=== PATIENT | female | born 1990 | race Caucasian/White ===

== ENCOUNTER 2016-11-07 08:00 | Inpatient (IN) ==
[2016-11-07] MEDS ORDERED: Ondansetron 4 MG/2 ML VIAL IVP PRN (08:13)
[2016-11-07] MEDS ORDERED: Famotidine 20 MG/2 ML VIAL IVP PRN (08:13)
[2016-11-07] MEDS ORDERED: Metoclopramide 10 MG/2 ML VIAL IVP PRN (08:13)
[2016-11-07] MEDS ORDERED: miSOPROStol 25 MCG TABLET PO PRN (08:13)
[2016-11-07] MEDS ORDERED: *HR* Nalbuphine 20 MG/ML AMPUL IVP PRN (08:17)
[2016-11-07] MEDS ORDERED: Penicillin G Potassium 5,000,000 UNIT in D5% in Water (Mini-Bag+) 100 ML IVPB ONE (08:30)
[2016-11-07] MEDS: Ringers Solution, Lactated 1,000 ML IVC SCH ×2 (08:38→15:40)
[2016-11-07 08:59] LABS: Basophils % 0.2 %; Eosinophils # 0.1 K/mcL (0.0-0.6); Hematocrit 33.6 % (35.3-44.9); Hemoglobin 11.2 g/dL (11.5-15.4); Immature Granulocytes % 0.5 % (0-4); Lymphocytes # 2.2 K/mcL (0.6-4.6); Lymphocytes % 23.9 %; Mean Corpuscular HGB Conc 33.3 g/dL (31.6-35.5); Mean Corpuscular Hemoglobin 30.5 pg (28.0-33.3); Mean Corpuscular Volume 91.6 fL (83.0-100.0); Monocytes # 0.7 K/mcL (0.0-1.3); Monocytes % 7.5 %; Neutrophils # 6.2 K/mcL (1.6-8.9); Platelet Count 170 K/mcL (140-400); Red Blood Count 3.67 M/mcL (3.82-4.97); Red Cell Distribution Width 13.1 % (11.5-14.5); Segmented Neutrophils % 66.9 %
--- NOTE | 2016-11-07 09:06 | OB/GYN History & Physical ---
Date of Encounter: 11/07/16 Time of Encounter: 09:03 Assessment and Plan (1) Elective induction of labor planned Current visit: Yes Status: Acute -Labor induction - continue to monitor History of Present Illness HPI: Ms. Elder is a 26 year old female at 39 weeks, presenting to L&D for induction of labor. Patient had an uncomplicated . Patient's prior was a vaginal delivery with no complications. She is group B strep positive. She has no complaints at this time. Obstetrical History - Pregnancies : 2 Para: 1 Medications and Allergies Vitamins 1 / PO DAILY 11/07/16 [History] Allergies No Known Allergies Allergy (Verified 11/07/16 08:11) Review of System OB All systems PM: reviewed and no additional remarkable complaints except as stated - Constitutional Constitutional ROS IM: no anorexia, no chills, no fatigue, no fever(s), no lethargy, no malaise, no weakness - Nose, mouth, and throat Nose, mouth and throat: no dizziness, no nasal discharge, no neck pain, no sore throat, no vertigo - Cardiovascular Cardiovascular: no acrocyanosis, no chest pain, no chest pain at rest - Respiratory Respiratory: no cough, no dyspnea, no dyspnea on exertion, no chest congestion - Gastrointestinal Gastrointestinal: no abdominal pain, no change in bowel habits, no change in stool character, no coffee ground emesis, no diarrhea, no hematemesis, no hematochezia, no nausea, no vomiting - Genitourinary Genitourinary: no difficulty urinating, no difficulty voiding, no hematuria, no urinary frequency, no urinary hesitancy, no urinary incontinence, no urinary urgency, no vaginal odor, no vaginal pruritis - Muscloskeletal Musculoskeletal: bilateral: foot swelling (After standing on feet during the day. Not at this time.) - Integumentary Integumentary: no erythema, no rash Exam - Constitutional Constitutional: well developed, well nourished, no acute distress, obese - HEENT HEENT: EOMI, PERRL, Normocephaly, Mucus Membranes Moist - Neck Neck exam: full ROM, normal inspection - Lungs Respiratory exam: CTAB - Cardiovascular Cardiovascular exam: RRR - Abdomen Abdomen: Present: bowel sounds normal, gravid, non tender - Extremities Extremities exam: full ROM, normal capillary refill, normal inspection, radial pulses palpable and symetrical Results Result Diagrams: 11/07/16 08:15 Abnormal lab results RBC 3.67 M/mcL (3.82-4.97) L 11/07/16 08:15 Hgb 11.2 g/dL (11.5-15.4) L 11/07/16 08:15 Hct 33.6 % (35.3-44.9) L 11/07/16 08:15 All other labs normal. - VTE Reasons for not Prescribing Prophylaxis: Treatment not Indicated - Low risk for VTE - Attending Attestation I examined this patient and my medical decision-making was reviewed with the Resident Physician. I agree with the documented findings, disposition and treatment plan as described except to the extent set forth below. Patient has been 4 cm in the office. Proceed with cytotec PO and GBS prophylaxis with EFM. Anticipate vaginal delivery. Maday Callahan DO
--- NOTE | 2016-11-07 10:20 | Anesthesia Evaluation PreOp ---
Date of Encounter: 11/07/16 Time of Encounter: 10:18 - Past History Planned Operation: TERM IUP Cardiac History: Denies any Significant Hx Pulmonary History: Denies Any Significant HX HOSPITALITY JOB TITLES History: Denies Any Significant HX Other Medical History: Denies Any Significant HX, Other (scoliosis) Anesthesia History: No Prior Anesthetic Complications, Past Anesthesia : Yes (39 weeks, ) Alcohol Use: none Drug use: none Medications and Allergies Vitamins 1 / PO DAILY 11/07/16 [History] Allergies No Known Allergies Allergy (Verified 11/07/16 08:11) - Meds/Allergy Pre-op Review Medications Reviewed: Yes Allergies Reviewed: Yes Beta Blockers on Current Med List: No Anesthesia Results - Labs 11/07/16 08:15 Anesthesia Exam O2 Sat Height 1.6 m Weight 113.7 kg O2 Sat by Pulse Oximetry 99 Vital Signs Temp Pulse Resp BP Pulse Ox 97.7 F 107 14 128/80 99 11/07/16 09:01 11/07/16 09:01 11/07/16 09:01 11/07/16 09:01 11/07/16 09:01 Height: 63 Weight: 113 - HEENT Pupil (Motor): Pupils equal Mallampati: II Teeth: Normal Oral Opening: Greater than 3 - HOSPITALITY JOB TITLES LOC: Oriented HOSPITALITY JOB TITLES Motor: Normal RUE, Normal LUE, Normal RLE, Normal LLE, Normal Face HOSPITALITY JOB TITLES Sensory: Normal: RUE, LUE, RLE, LLE, Face - Cardiac Rhythm: Regular Murmur: None JVD: No Carotid Bruit: No - Pulmonary Breath Sounds: bilateral Clear Respiratory Effort: Symmetrical Anesthesia Assess/Plan ASA Score: 2 Modified Nancy Scale for Level of Consciousness: Cooperative, oriented, and tranquil Anesthetic Plan: Regional Monitoring Plan: Standard Monitors
[2016-11-07] MEDS: Penicillin G Potassium 2,500,000 UNIT in D5% in Water 100 ML IVPB SCH ×2 (12:49→17:03)
--- NOTE | 2016-11-07 13:19 | OB Labor Progress Note ---
Date of Encounter: 11/07/16 Time of Encounter: 13:16 Labor Progress Note - Subjective Subjective: Patient resting in bed. Patient reports contractions are getting stronger. Discussed POC with patient. Patient denies any questions or concerns. - Cervix Cervix: 4/80/-2 - Heart Tones Heart Tones: 135 bpm moderate variability +15x15 accels no decels noted. Cat 1 tracing. - Diablock Diablock: 2-3 min apart - Interventions Interventions: SVE, AROM moderate amount of clear fluid. Patient tolerated well. - Plan Plan: Continue EFM and TOCO. Patient may have nubain or epidural when desired for pain management.
[2016-11-07] MEDS ORDERED: *HR* Nalbuphine 20 MG/ML AMPUL ONE (15:21)
[2016-11-07] MEDS ORDERED: Bupivacaine-MPF 0.25% 10 ML VIAL ONE (15:35)
[2016-11-07] MEDS ORDERED: *HR* FentaNYL (PF) 100 MCG/2 ML VIAL ONE ×2 (15:35→18:54)
[2016-11-07] MEDS ORDERED: Epidural Premix (fent/bupiv) 110 ML EP ONE (15:36)
[2016-11-07] MEDS ORDERED: EPHEDrine 50 MG/ML VIAL IVP PRN (16:25)
[2016-11-07] MEDS ORDERED: *HR* FentaNYL (PF) 100 MCG/2 ML VIAL EP ONE (16:25)
[2016-11-07] MEDS ORDERED: Bupivacaine-MPF 0.25% 10 ML VIAL EP ONE (16:25)
[2016-11-07] MEDS ORDERED: Epidural Premix (fent/bupiv) 110 ML EP SCH (16:30)
--- NOTE | 2016-11-07 16:33 | Anesthesia Procedures ---
Date of Encounter: 11/07/16 Time of Encounter: 15:55 Procedures: Anesthesia - Epidural/Spinal Patient ID/Chart reviewed: Yes Patient examined: Yes OB Eval: Gestational age: 39 OB Eval: : 2 OB Eval: Hx Para: 1 OB Eval: Dilated at (cm): 5 OB Eval: Contractions: Non-stressed pattern Consent Obtained: Yes Supplemental Oxygen: None/Room Air Site Prep: Aseptic Technique, 0.5% Chlorhexidine/Alcohol Patient position: upright Local Anesthetic: Lidocaine 1% Amount of Local Anesthetic used: 3 Touhy Needle Gauge: 18 Touhy Needle Depth (cm): 7 Catheter Depth at Skin (cm): 12 Test Dose (1.5% Lido + Epi): Volume given (mls): 3 Test Dose Result: Negative Loading Dose: 0.25% Marcaine (mls): 5 Loading Dose: Fentanyl (mcg): 100 Loading Dose: Other: 3ml nss Loading Dose Administered: Thru Touhy Needle Infusion Med: 0.125% Bupivacaine w/ 2 mcg/ml Fentanyl Infusion Rate (mls/hr): [address]: Tegaderm Interspace Used: L2-L3 Loss of Resistance (FABIO): Yes Blood: No CSF: No Paresthesia: No Procedure: Strict asepsis, good FABIO, fhr unchanged No parasthesias, no heme, no CSF Vitals + FHT's: Please see nurses notes
[2016-11-07] MEDS ORDERED: *HR* Ropivacaine/PF 0.2% 10 ML AMPUL ONE (18:54)
--- NOTE | 2016-11-07 19:07 | Anesthesia Progress Note ---
Date of Encounter: 11/07/16 Time of Encounter: 19:00 Anesthesia Note - Note Note: 11/07/16 19:01 Called to room with patient c/o 10 of 10 pain with contractions. Epidural cathetar dressing dry and intact, cathetar 12cm at skin. After neg aspiration, 12cc 0.2% ropivicaine and 100mcg fentanyl given via epidural cathetar. BP cycle time reduced to q5min. Current BP 141/87
[2016-11-07] MEDS ORDERED: Oxytocin 20 units/ LR 1000 mL 20 UNIT/1,000 ML BAG IVC ONE ×3 (19:27→22:31)
--- NOTE | 2016-11-07 20:16 | OB/GYN Procedure Note ---
Delivery - Delivery Date: 11/07/16 Provider: Maday Callahan Intrapartum events: none Delivery induction: AROM, misoprostol Delivery monitor: external FHT, external uterine, internal FHT Anesthesia: epidural Estimated Blood Loss: 300 - (s) Infant A Delivery Date: 11/07/16 Delivery Time: 19:52 Presentation: vertex Position: OA Route of delivery: Gender: Male Viability: Viable Pounds: 8 Ounces: 0 Weight Gram: 3.63 kg at 1 minute: 8 at 5 mins: 9 Shoulder Dystocia: not encountered Specimens collected: cord blood Placenta: spontaneous Cord: 3 umbilical vessels - Repair Episiotomy: none Laceration Description: None - Complications Delivery complications: none Delivery comments: Called to room with patient with urge to push. Examined and found to be 9 cm with reducible cervix anteriorly. Patient was allowed to push thru the cervix. Unable to auscultate FHT's with external Doppler so FSE was placed. FHT's 90- 120 and bouncing around. FSE was then replaced. FHT's in 80's. Verbal consent obtained for vacuum application. Kiwi vacuum applied to 500 mm Hg 10 seconds with pop off. Second application 12 seconds without pop off, reduced with head delivered. No nuchal cord or shoulder dystocia was encountered. The remainder of the infant delivered with maternal effort. was placed on mom's abdomen and began to cry. Cord was clamped after a minute had passed. Segment of cord was collected. Placenta delivered spontaneously, complete, and intact with a 3 vessel cord. Mother and infant are recovering in LDR in stable condition. - Disposition Mom disposition: stable in LDR disposition: stable in LDR
[2016-11-07] MEDS ORDERED: Measles/Mumps/Rubella Vacc 0.5 ML VIAL SQ PRN (22:31)
[2016-11-07] MEDS ORDERED: Ibuprofen 600 MG TABLET PO PRN (22:31)
[2016-11-07] MEDS ORDERED: Oxytocin 20 units/ LR 1000 mL 20 UNIT/1,000 ML BAG IV SCH (22:31)
[2016-11-07] MEDS ORDERED: Acetaminophen 325 MG TABLET PO PRN (22:31)
[2016-11-08 04:13] LABS: Basophils % 0.1 %; Hematocrit 29.8 % (35.3-44.9); Hemoglobin 9.8 g/dL (11.5-15.4); Immature Granulocytes % 0.5 % (0-4); Lymphocytes # 1.5 K/mcL (0.6-4.6); Lymphocytes % 10.9 %; Mean Corpuscular HGB Conc 32.9 g/dL (31.6-35.5); Mean Corpuscular Hemoglobin 30.4 pg (28.0-33.3); Mean Corpuscular Volume 92.5 fL (83.0-100.0); Mean Platelet Volume 12.2 fL (9.4-12.4); Monocytes # 0.7 K/mcL (0.0-1.3); Monocytes % 5.1 %; Neutrophils # 11.6 K/mcL (1.6-8.9); Platelet Count 155 K/mcL (140-400); Red Blood Count 3.22 M/mcL (3.82-4.97); Red Cell Distribution Width 13.2 % (11.5-14.5); Segmented Neutrophils % 83.4 %
[2016-11-08] MEDS ORDERED: Prenatal Vit/FA 1 EACH TABLET PO SCH (09:00)
--- NOTE | 2016-11-08 09:18 | Discharge Summary ---
Date of Encounter: 11/08/16 Time of Encounter: 09:15 - Discharge Diagnosis (1) Status post vaginal delivery Priority: Primary Status: Acute Comments: Continue routine care discharge home today (2) Breast feeding status of mother Priority: Secondary Status: Acute Comments: support prn - Discharge Medications Prescriptions: Ibuprofen [Motrin] 600 mg PO Q6HR PRN #60 tablet PRN Reason: Cramping Breast Pump [BREAST PUMP] 1 each .ROUTE AD #1 each Home Medications: Vitamins 1 / PO DAILY 11/07/16 [History] Breast Pump [BREAST PUMP] 1 each .ROUTE AD #1 each 11/08/16 [Rx] Ibuprofen [Motrin] 600 mg PO Q6HR PRN #60 tablet 11/08/16 [Rx] Vit/FA 1 each PO DAILY tablet 11/08/16 [Rx] Allergies/Adverse Reactions: Allergies No Known Allergies Allergy (Verified 11/07/16 08:11) Data Procedures and tests throughout hospitalization: Laboratory Tests 11/07/16 11/08/16 08:15 03:34 WBC 9.2 13.9 H D RBC 3.67 L 3.22 L Hgb 11.2 L 9.8 L Hct 33.6 L 29.8 L MCV 91.6 92.5 MCH 30.5 30.4 MCHC 33.3 32.9 RDW 13.1 13.2 Plt Count 170 155 MPV 12.0 12.2 Immature Gran % 0.5 0.5 Seg Neutrophils % 66.9 83.4 Lymphocytes % 23.9 10.9 Monocytes % 7.5 5.1 Eosinophils % 1.0 0.0 Basophils % 0.2 0.1 Neutrophils # 6.2 11.6 H Lymphocytes # 2.2 1.5 Monocytes # 0.7 0.7 Eosinophils # 0.1 0.0 Basophils # 0.0 0.0 Labs on day of discharge: Labs from last 24 hours 11/08/16 03:34 WBC 13.9 H D RBC 3.22 L Hgb 9.8 L Hct 29.8 L MCV 92.5 MCH 30.4 MCHC 32.9 RDW 13.2 Plt Count 155 MPV 12.2 Immature Gran % 0.5 Seg Neutrophils % 83.4 Lymphocytes % 10.9 Monocytes % 5.1 Eosinophils % 0.0 Basophils % 0.1 Neutrophils # 11.6 H Lymphocytes # 1.5 Monocytes # 0.7 Eosinophils # 0.0 Basophils # 0.0 Date of admission: 11/07/16 08:04 Primary care physician: Kailash Dockery, Consults: 11/07/16 22:31 Consult to [employer] [CONS] Routine Comment: Vaginal delivery, consult needed Discharging clinician: Charity Souza Anticipated date of discharge: 11/08/16 - Patient Status Disposition: Home, Self-Care Condition: Good Functional capacity at discharge: independent ambulation - Discharge Instructions Follow Up With: Kailash Dockery DO [Primary Care Provider] - Maday Callahan DO [Partnered Physician] - Additional Instructions: Perineal Care: Always wipe front to back Change your pad frequently Use your earl bottle with warm water and spray front to back Do not douche, use tampons, have sexual intercourse or put anything in your vagina for 4-6 weeks after delivery Bleeding: Vaginal bleeding can last up to 6 weeks Your menstrual period may return as early as 6 weeks after you are discharged from the hospital Chun/Stitches Care: Vaginal Delivery Vaginal stitches will dissolve within 4-6 weeks Follow perineal care instructions Care Stitches will dissolve on their own If you have chun, they will need to be removed in the doctors office within 5-7 days. You may shower with stitches or chun Drip plan or soapy water over the incision to clean. Pat dry gently with a clean towel. Make sure you completely dry under the skin folds DO NOT USE powders, lotions, rubbing alcohol or hydrogen peroxide on or around your incision. This will slow your wound healing It is normal to have soreness, burning, tingling, itchiness and/or numbness as your incision heals Activity: Rest frequently Do not lift anything heavier than a gallon of milk, up to 10-15 pounds No driving for 1-2 weeks for Vaginal delivery No driving for 2-4 weeks for delivery Take stairs slowly, one at a time Gradually increase your daily activity until you are back to your normal routine Do not exercise until you have had your follow-up appointment Bathing: Take a shower daily Do not take a tub bath for the first 4 weeks Diet: Drink plenty of water and fruit juices Eat a well-balanced diet with foods high in fiber such as fruits and vegetables Depression: Your hormones have a major impact on your feelings and emotions. Hormone imbalance may cause changes in your mood, creating unfamiliar thoughts and actions. Support is available to help you understand and cope with these feelings and mood changes. If you answer yes to any of the following questions, please call your health care provider: Are you having trouble sleeping? Are you feeling isolated? Have you lost your appetite? Are you having thoughts of hurting yourself or others? WARNING SIGNS: Heavy bleeding from the vagina (blood is bright red and soaks a sanitary pad in an hour or less.) Passing a blood clot larger than your fist Discharge from the vagina that has a bad odor Temperature over 100.4 F, or if you feel cold and have chills An episiotomy site that is warm, swollen or oozing. Use a mirror if needed Urination (pee) that is painful, very red and swollen or leaking fluid An incision that is painful, very red and swollen and leaking fluid An incision that has come open Breasts that are painful or full with flu like symptoms Redness, warmth or swelling in the calf of your leg Trouble breathing, dizziness, visual disturbance or faintness *Notify your health care provider immediately or go to the nearest Emergency Room if you experience any of the above signs.* To contact the nurses station 24 hours a day, For non-urgent, routine questions, please call the office at - Diet and Activity Activity: increase activity as tolerated Diet: regular diet Hospital Course Reason for admission: induction of labor Delivery: Episiotomy: none Laceration: none Other procedures: none complications: none Discharge diagnosis: IUP at term delivered baby: male (breast feeding) Time Attestation: Total time spent providing and/or coordinating discharge services: Time Spent: Less than 30 minutes Exam - Constitutional Vitals: Temp Pulse Resp BP Pulse Ox 97.5 F L 106 12 138/69 98 11/08/16 07:36 11/08/16 08:40 11/08/16 08:40 11/08/16 07:36 11/08/16 07:36 General appearance IM: A&O X 3, pleasant, obese, answers questions appropriately - Respiratory Respiratory exam: Present: CTAB - Cardiovascular Cardiovascular exam IM: Present: RRR, +S1, +S2 - GI/Abdominal GI/Abdominal exam IM: normal bowel sounds - Uterine Tone: Firm Uterus Position: 1 Finger Below Umbilicus, Midline - Extremities Exam Extremities exam IM: Present: normal capillary refill, normal inspection, pedal edema (1+) - Neurological Exam Neurological exam: oriented X3, reflexes normal
[2016-11-08 17:00] VITALS: BP 130/72
[2016-11-08] MEDS ORDERED: Lanolin 7 G OINT...G. TP PRN (18:08)
== END 2016-11-08 20:45 | disposition home or self-care (01) | DRG 775 ==
LOC: 1NENULAB 08:04 → 1NENUOBS 22:42
PROVIDERS: ADMIT Obstetrics & Gynecology; ATTEND Obstetrics & Gynecology